=== PATIENT | female | born 1995 | race Caucasian/White ===

== ENCOUNTER 2019-08-14 16:22 | Emergency (ER) | payer SELFPAY ==
[2019-08-14 16:23] VITALS: BP 125/72; PULSE 64; RESP 16; TEMP 37.1; O2SAT 95; BMI 21.4
[2019-08-14 17:54] VITALS: BP 121/54; PULSE 78; RESP 14; O2SAT 98
--- NOTE | 2019-08-14 18:02 | ED.DCSUM_ITS ---
- ER Visit Summary Date of Service: 08/14/19 Chief Complaint: Sore throat History of Present Illness: The patient is a 24 F who presents with a sore throat that has been getting worse over the past 3 days. Patient describes as hoarse and scratchy. Patient states it is worse with eating and drinking. Ada ent admits to a cough. Patient admits to some green and yellow sputum. Patient also admits to headache, sinus congestion and shortness of breath. Patient denies any fevers or chills. Patient denies any nausea or vomiting. Physical Examination: Vital signs are stable. Patient is afebrile. Patient is in no acute distress. Oral mucosa is pink and moist. There is mild postnasal drainage. There are no exudates noted. Tympanic membranes are clear bilaterally. Neck is supple. Trachea is midline. No JVD or lymphadenopathy. Heart was regular rate and rhythm. Lungs are clear and equal bilaterally. Abdomen is soft. Bowel sounds are normal. Cranial nerves II through XII are intact. There are no focal motor or sensory deficits noted. Emergency Department Course and Treatment: Patient has a 0 out of 4 Centor criteria. Patient was advised that this is most likely a viral upper respiratory infection. Patient understood and was agreeable with the plan. Patient was instructed to drink plenty of fluids. Patient was instructed to take Tylenol or ibuprofen as needed for any fevers. Patient was instructed to follow-up with her primary care physician in 5 to 7 days. Disposition: Discharge home Impression: Viral pharyngitis This note was generated with [employer] dictation software. It may contain incorrect words, spelling, and punctuation that were not noted in review of the chart prior to signing ED Disposition - Plan for ED Patient: Disposition: Home or Assisted Living Diagnosis: Viral pharyngitis Instructions: PHARYNGITIS, Viral Referrals: Care Physician,No Primary [Primary Care Provider] - 5-7 Days
== END 2019-08-14 18:18 | disposition home or self-care (01) ==
PROVIDERS: Emergency Provider Emergency Medicine
DX: J02.9 Acute pharyngitis, unspecified (principal); R06.02 Shortness of breath; R51 Headache; M54.2 Cervicalgia
CPT/HCPCS: 99282

== ENCOUNTER 2019-08-20 16:54 | Emergency (ER) | payer SELFPAY ==
[2019-08-20 16:55] VITALS: BP 134/81; PULSE 79; RESP 16; TEMP 36.1; O2SAT 100; BMI 23.8
--- NOTE | 2019-08-20 17:01 | ED.DCSUM_ITS ---
History of Present Illness Chief Complaint: Head Injury Informant: Patient Onset: Yesterday Current Severity: Mild Maximum Severity: Mild Narrative: Patient reports hitting the front of her head against a clothing rack at the [employer] store yesterday. She suffered 2 small lacerations that were bleeding quite a bit at the time. Bleeding is well controlled. Patient continues to have nausea with near vomiting. She states she feels like her vision is distorted, almost as if it is in 3D. She does report some problems with balance. She denies neck pain or any other injury. Past Medical History - Allergies and Home Meds Allergies/Adverse Reactions: Allergies Penicillins Allergy (Verified 08/14/19 16:23) Other PER PT, WAS TOLD SHE WAS ALLERGIC WHEN YOUNG Primary Care Physician: Care Physician,No Primary [NON-STAFF] - Past Medical History: None Smoking Status: Never smoker Alcohol: Occasional Drugs: Cocaine Review of Systems General: Denies: Chills, Fever Eyes: Reports: Visual changes - bilaterally ENT: Denies: Bilateral ear pain, Rhinorrhea Cardiovascular: Denies: Chest pain Respiratory: Denies: Dyspnea, Cough Gastrointestinal: Reports: Nausea. Denies: Abdominal pain, Vomiting Musculoskeletal: Denies: Neck pain, Back pain, Extremity Pain Skin: Reports: Wounds Neurological: Reports: Headache. Denies: Parasthesia Hematologic: Denies: Easy bruising, Easy bleeding Allergy: Denies: Uticaria Physical Exam Vital Signs/Narrative: Vital Signs Temp Pulse Resp BP Pulse Ox 08/20/19 16:55 97 F L 79 16 134/81 H 100 Inital Vital Signs reviewed: Yes General: Well nourished, Well developed Head: Normocephalic, - - Patient has 2 linear superficial lacerations just superior to the medial left eyebrow. No active bleeding at this time. Area slightly tender to palpation. Eyes: Perrl, EOMI ENT: Moist mucous membranes, TM's clear Neck: Supple, - - No C-spine tenderness. Cardiovascular: Regular rate, Regular rhythm Respiratory: No distress, CTA bilaterally Abdomen: Soft, Nontender Skin: - - 2 superficial lacerations as noted above. Neurological: Alert, Oriented x3, Normal Strength, Normal Sensation Psychological: Normal affect Diagnostic/Tx/Re-eval Impressions Brain CT 08/20/19 17:01 IMPRESSION: 1. Normal CT brain. No acute intracranial findings of trauma. Electronically Signed: Katia Lynn, at 17:40 EST Tel , Service support , 08/20/19 17:01 CT Head [Brain/Head without Contrast] [CT] Stat - Medical Decision Making Test results were discussed with the patient. I did advise her that she likely has a mild concussion, but normal CT scan is noted. Patient is given a work note for today. ED Disposition - Plan for ED Patient: Disposition: Home or Assisted Living Diagnosis: Concussion Instructions: CONCUSSION, No Wake Up Referrals: Jovita Mitchell MD [STAFF PHYSICIAN] - As Needed
--- NOTE | 2019-08-20 17:01 | CT_ITS ---
STUDY: CT BRAIN WITHOUT CONTRAST REASON FOR EXAM: Female, 24 years old. Trauma RADIATION DOSAGE (If Supplied By Facility): CTDIvol = ( 44.99 ) mGy, DLP = ( 779.24 ) mGycm TECHNIQUE: Transaxial CT imaging of the brain was performed without administration of intravenous contrast material. Individualized dose optimization techniques were used for this CT. COMPARISON: No relevant priors. FINDINGS: Brain parenchyma is without focal lesions, mass effect, acute intracranial hemorrhage, extra parenchymal fluid collections, hydrocephalus or herniation. The skull is intact. CT/Brain/Head without Contrast IMPRESSION: 1. Normal CT brain. No acute intracranial findings of trauma. Electronically Signed: Katia Lynn, at 17:40 EST Tel , Service support ,
== END 2019-08-20 18:05 | disposition home or self-care (01) ==
PROVIDERS: Emergency Provider Emergency Medicine; Family Provider Obstetrics & Gynecology; PCP Obstetrics & Gynecology
DX: S06.0X0A Concussion without loss of consciousness, initial encounter (principal); S01.112A Laceration without foreign body of left eyelid and periocular area, initial encounter; W22.8XXA Striking against or struck by other objects, initial encounter; Y93.9 Activity, unspecified; Y92.9 Unspecified place or not applicable; Y99.9 Unspecified external cause status; Z88.0 Allergy status to penicillin
CPT/HCPCS: 70450; 99282